=== PATIENT | male | born 1995 | race African-American/Black ===

== ENCOUNTER → 2018-11-07 07:37 | Emergency (ER) | payer SELFPAY | END | disposition home or self-care (01) | LOC: ERS 07:37 | DX: S46.011A Strain of muscle(s) and tendon(s) of the rotator cuff of right shoulder, initial encounter (principal); X50.1XXA Overexertion from prolonged static or awkward postures, initial encounter | CPT/HCPCS: 99283 ==

== ENCOUNTER 2018-12-30 07:04 | Emergency (ER) | payer SELFPAY ==
[2019-01-01 01:11] LABS: Chlamydia by PCR Not Detected (NotDetected); GC by PCR Not Detected (NotDetected)
== END 2018-12-30 07:52 | disposition home or self-care (01) ==
LOC: ERS 07:04
DX: N50.89 Other specified disorders of the male genital organs (principal)
CPT/HCPCS: 87491; 87591; 99283

== ENCOUNTER 2019-04-23 07:15 | Emergency (ER) | payer SELFPAY ==
[2019-04-23 08:01] LABS: #Basophils 0.1 thou/uL (0.0-0.2); #Eosinphils 0.7 thou/uL (0.0-0.7); #Lymphocytes 2.6 thou/uL (1.20-3.40); #Monocytes 0.6 thou/uL (0.11-0.59); #Neutrophils 3.8 thou/uL (1.40-6.50); %Basophils 0.9 % (0.0-1.0); %Eosinophils 8.9 % (0.0-10.0); %Lymphocytes 33.8 % (21.0-51.0); %Monocytes 7.8 % (0.0-10.0); %Neutrophils 48.6 % (42.0-75.0); Hemoglobin 15.2 g/dL (14.0-18.0); Mean Corpuscular HGB CONC 34.7 g/dL (32.0-36.0); Mean Corpuscular Hemoglobin 31.9 pg (27.0-31.0); Mean Platelet Volume 6.9 fL (7.4-10.4); Platelet Count 238 thou/uL (130-400); RBC Distribution Width 11.8 % (11.5-14.5); Red Blood Cell (RBC) Count 4.76 mill/uL (4.70-6.10); White Blood Cell (WBC) Count 7.8 thou/uL (4.8-10.8)
--- NOTE | 2019-04-23 08:17 | RAD ---
PA AND LATERAL VIEWS OF THE CHEST: HISTORY: Chest pain. FINDINGS: Comparison is made with the exam of 02/24/2016. The cardiomediastinum is normal. The lungs are expan ded and clear. The bony thorax is normal. IMPRESSION: Normal exam. POS: OFF
[2019-04-23 08:23] LABS: ALT (SGPT) 7 U/L (8-55); AST (SGOT) 16 U/L (5-34); Albumin 4.3 g/dL (3.5-5.0); Alkaline Phosphatase 67 U/L (40-150); Anion Gap 14 mmol/L (10-20); BUN (Urea Nitrogen) 12 mg/dL (8.9-20.6); Bilirubin, Total 0.4 mg/dL (0.2-1.2); Calc. Creatinine Clearance 0 mL/min (70-130); Calcium 9.9 mg/dL (7.8-10.44); Carbon Dioxide 21 mmol/L (22-29); Chloride 108 mmol/L (98-107); Estimated GFR-MDRD Greater than 90; Globulin 2.7 g/dL (2.4-3.5); Glucose 94 mg/dL (70-105); Potassium 4.2 mmol/L (3.5-5.1); Sodium 139 mmol/L (136-145)
--- NOTE | 2019-04-24 08:49 | EKG ---
Test Reason : Blood Pressure : / mmHG Vent. Rate : 052 BPM Atrial Rate : 052 BPM P-R Int : 156 ms QRS Dur : 096 ms QT Int : 390 ms P-R-T Axes : 046 058 056 degrees QTc Int : 362 ms Sinus bradycardia Early repolarization Normal ECG Confirmed by HERI BECK MD ([id number]), video effects editor TERRY DWYER ([id number]) on 04/24/2019 8:42:17 AM Also confirmed by HERI BECK MD ([id number]), video effects editor TERRY DWYER ([id number]) on 04/24/2019 8:48:51 AM Referred By: Confirmed By:HERI BECK MD
== END 2019-04-23 08:47 | disposition home or self-care (01) ==
LOC: ERS 07:15
DX: R07.89 Other chest pain (principal)
CPT/HCPCS: 36415; 71046; 80053; 83880; 84484; 85025; 93005

== ENCOUNTER 2020-04-02 08:16 | Emergency (ER) | payer MEDICAID, SELFPAY ==
[2020-04-02] MEDS ORDERED: Ibuprofen 800 MG TAB ONE (08:56)
--- NOTE | 2020-04-02 11:02 | RAD ---
RIGHT HIP 2 VIEWS: Date: 04/02/2020 HISTORY: Hip pain. FINDINGS: Femoral head contour normal. No fracture or osseous lesion seen. IMPRESSION: No acute findings. POS: AGW
== END 2020-04-02 09:53 | disposition home or self-care (01) ==
LOC: ERS 08:16
DX: M25.551 Pain in right hip (principal)

== ENCOUNTER 2021-08-17 10:30 | Emergency (ER) | payer SELFPAY ==
[2021-08-17] MEDS ORDERED: Ketorolac Tromethamine 30 MG/ML VIAL ONE (11:08)
== END 2021-08-17 11:15 | disposition home or self-care (01) ==
LOC: ERS 10:30
DX: J02.9 Acute pharyngitis, unspecified (principal)
CPT/HCPCS: 96372; 99282; J1885

== ENCOUNTER 2021-09-21 18:36 | Emergency (ER) | payer SELFPAY ==
[2021-09-21] MEDS ORDERED: Dexamethasone 10 MG/ML VIAL ONE (19:54)
== END 2021-09-21 20:26 | disposition home or self-care (01) ==
LOC: ERS 18:36
DX: J02.9 Acute pharyngitis, unspecified (principal)
CPT/HCPCS: 87081; 87430; 99283; J1100

== ENCOUNTER 2022-02-20 14:51 | Emergency (ER) | payer SELFPAY ==
[2022-02-20] MEDS ORDERED: Boostrix 0.5 ML (Tdap) VIAL ONE (15:03)
== END 2022-02-20 15:40 | disposition home or self-care (01) ==
LOC: ERS 14:51
DX: S91.332A Puncture wound without foreign body, left foot, initial encounter (principal); S90.32XA Contusion of left foot, initial encounter; W26.8XXA Contact with other sharp object(s), not elsewhere classified, initial encounter; Z23 Encounter for immunization
CPT/HCPCS: 90471; 90715

== ENCOUNTER 2022-10-06 18:22 | Emergency (ER) | payer SELFPAY | END 2022-10-06 21:02 | disposition home or self-care (01) | LOC: ERS 18:22 | DX: S29.011A Strain of muscle and tendon of front wall of thorax, initial encounter (principal) | CPT/HCPCS: 71045; 93005 ==